=== PATIENT | female | born 1990 | race Caucasian/White ===

== ENCOUNTER 2018-07-16 06:52 | Inpatient (IN) | payer OTHER, SELFPAY ==
--- NOTE | 2018-07-16 08:39 | P.HP_ITS ---
History of Present Illness Date Patient Seen: 07/16/18 Time Patient Seen: 08:33 Chief complaint: OBSERVATION OF LABOR Narrative: Vy is a 28-year-old G2 para 1 with a LMP of 10/17/2017 estimated due date of 07/24/2018 which puts her at 38 weeks and 6 7 days. She is a patient of the [employer] I guess they are [facility] because they are full. They referred her to [facility]. Patient states this morning approximately 530 when she was rolling over bed she felt a pop and a gush of fluid. She got out of bed and she continued to leak fluid. At that point she figured her membranes had ruptured called the hospital who then referred her to [facility]. She arrived at approximately 6:30 a.m. this morning was grossly ruptured. heart tones were present and she was kervin intermittently. Patient states that she in the last 24 hr has had no fevers or chills normal amount of vaginal discharge. She has not had any abdominal pain or discomfort. She describes the fluid is clear. She says she has had some Mathieu Faith early contraction or false labor. Patient states that she has had an uneventful . She has been told she has had no worrisome findings as far as blood pressure laboratory test ultrasounds. The only medication that she has been on during her is vitamins. She has had routine follow-up from the chart. On review of her previous history she said her previous baby was born at 38 weeks vaginally with an epidural and it went kind of fast. Past medical history patient denies any significant past medical history of asthma heart disease allergies anxiety or depression. Medications patient states she is only on vitamins Social history patient denies smoking drinking or recreational drugs Gynecological history no history of abnormal Pap smears as she reports gynecological infections 1 previous vaginal delivery. Review of chart shows regular routine follow-up from [address] up through 38 weeks. Initial weight was 180 weight on last visit was 210. Laboratory results show GBS status is negative GC chlamydia is negative early quad screening was normal urinalysis was normal rubella immune simple is nonreactive hepatitis a B and C negative hemoglobin 12 point I. GBS status is negative. Received tetanus shot on May 13. Patient History Family & Social History Family History: Reviewed 07/16/18 by Vladislav Armijo MD Exam Narrative Exam Narrative: . General: Alert no apparent distress. Affect is appropriate. Kervin it is uncomfortable. HEENT: Neck is supple without lymphadenopathy pupils equal round and reactive. Cardio: S1-S2 regular rate and rhythm. Respiratory: Lungs clear to auscultation. Abdomen: Gravid. Extremities: Normal deep tendon reflexes trace edema. [place]: Intermittent contractions. Not regular heart tones: 130s to 140s category 1 Assessment & Plan Plan: Assessment/Plan Narrative: 28-year-old female G2 para 1 at 38 and 6 7 weeks with spontaneous rupture of membranes. GBS status is negative. heart tones are category 1 she is kervin intermittently. We will go ahead and admit patient to the Center. [facility] or standing orders were written for. We will monitor baby and mother. Obtain a good set of vitals and check temperature. Send for hemoglobin and hematocrit white blood cell count type and screen. Will monitor for progression of labor. Discussed the patient today with her wishes are. She is not opposed to an epidural. And that she was okay with use of Pitocin issues that last time in her . If she continues to contract erratically we will go ahead and start Pitocin here later this morning and anticipate and I vaginal delivery. Risks benefits common complications in hospital consents were obtained and signed.
[2018-07-16] MEDS: LACTATED RINGERS 1,000 ML 100 ML IV ×2 (09:39→11:36)
[2018-07-16] MEDS: OXYTOCIN PREMIX 30 UNIT/500 ML PLAST..BAG IV (09:39)
[2018-07-16 09:45] LABS: Add Manual Diff / Slide Review NO; Basophils Percent Auto 0.6 % (0-2); Eosinophils Percent Auto 0.6 % (2-4); Hematocrit 35.4 % (36-46); Hemoglobin 11.9 g/dL (12.0-16.0); Lymphocytes Percent Auto 19.9 % (25-40); Mean Corpuscular HGB Conc 33.7 % (30-36); Mean Corpuscular Hemoglobin 27.2 PG (26-34); Mean Corpuscular Volume 80.7 fL (80-100); Monocytes Percent Auto 5.7 % (3-14); Neutrophils Absolute Auto 7400 /uL (3000-5900); Neutrophils Percent Auto 73.2 % (50-75); Platelet Count 246 X10^3/uL (150-400); Red Blood Cell Count 4.38 X10^6/uL (4.0-5.2); Red Cell Distribution Width 14.5 % (11.6-14.8); White Blood Cell Count 10.1 X10^3/uL (4.5-11.0)
[2018-07-16 09:54] VITALS: BP 127/72
--- NOTE | 2018-07-16 18:11 | PM.OBPRVD ---
Narrative: Stage I 7 0.5 hr. Patient came into Labor and delivery floor with spontaneous rupture of membranes with intermittent contractions with clear fluid. Vital signs were stable and she was afebrile heart tones were category 1. During stage I of labor she had good progression of labor. She had augmentation of her labor with mild Pitocin. She received an epidural anesthesia with good results. During stage I heart tones were category 1. GBS status was negative. She had a fluid be a bolus during her epidural. Stage II. 15 min. heart tones were reassuring. Delivery of viable male with the occiput put posterior position. It delivery of the head there was a small nuchal cord which is easily reduced. Baby was then delivered spontaneously and placed on the mother's abdomen. Cord was cut transected. Baby had vigorous cry. Mom and baby were doing well after the delivery. Stage III 10 min. Delivery of intact placenta with 3 vessel cords inspection of the vagina and cervix shows no lacerations or tears bleeding loss was 150 cc uterus was firm baby was able to breast feed well afterwards without concerns.
[2018-07-17] MEDS: IBUPROFEN 600 MG TABLET PO ×2 (00:32→08:16)
[2018-07-17 07:17] LABS: Hematocrit 31.8 % (36-46)
--- NOTE | 2018-07-17 08:09 | PM.OBDS.1 ---
Discharge Providers Date of admission: 07/16/18 06:52 Consults: 07/16/18 21:28 Consult to Facility Practice Specialist Routine Comment: Discharge provider: Vladislav Armijo MD Summary Time Spent with Patient Mom was admitted the hospital at 38 and 6 weeks with rupture of membranes. She progressed to a to complete and delivered a viable male infant. Baby had Apgars 9 and 9. Mom had normal amount of vaginal bleeding after the delivery. No repair was needed. Uterus contracted down fine. Post delivery. Her vital signs were stable her pain was well controlled. She was ambulating had no difficulty with urination and bowel movements.The following day she was ambulating eating well breast-feeding was going okay hemoglobin hematocrit was stable. She was afebrile and desiring discharge from the hospital. Objective Labs Result Diagrams: 07/17/18 06:45 Labs: Laboratory Results - last 24 hr 07/16/18 07/16/18 07/17/18 08:05 08:05 06:45 WBC 10.1 RBC 4.38 Hgb 11.9 L 11.0 L Hct 35.4 L 31.8 L MCV 80.7 MCH 27.2 MCHC 33.7 RDW 14.5 Plt Count 246 Neut % (Auto) 73.2 Lymph % (Auto) 19.9 L [place] % (Auto) 5.7 Eos % (Auto) 0.6 L Baso % (Auto) 0.6 Neut # (Auto) 7400 H Blood Type O Positive Antibody Screen Negative Discharge Plan Discharge Plan Patient Disposition: Home Discharge Med Rec/Prescriptions Prescriptions: No Action No Known Home Medications RF: 0 Discharge Data Attending Provider: Vladislav Armijo Admit Date/Time: 07/16/18 06:52
[2018-07-17] MEDS: DOCUSATE 250 MG CAPSULE PO (09:12)
[2018-07-17 12:04] VITALS: BP 127/72; PULSE 70; RESP 16; TEMP 36.8
== END 2018-07-17 15:22 | disposition home or self-care (01) | DRG 775 ==
PROVIDERS: Admitting Provider Family Medicine; Visit Provider Family Medicine
DX: O69.81X0 Labor and delivery complicated by cord around neck, without compression, not applicable or unspecified (principal); O64.0XX0 Obstructed labor due to incomplete rotation of fetal head, not applicable or unspecified; Z3A.38 38 weeks gestation of pregnancy; Z37.0 Single live birth
CPT/HCPCS: 01967; 36415; 59050; 59409; 85014; 85018; 85025; 86850; 86900; 86901; 99221; 99238; G0379; J2590